=== PATIENT | female | born 1940 | race Caucasian/White ===

== ENCOUNTER 2019-09-02 08:31 | Day surgery (SDC) | payer MEDICARE ==
[2019-09-02] VITALS (13 sets, daily range): BP systolic 126–147; BP diastolic 60–89
[~2019-09-02] VITALS: Ht 162.6 cm; Wt 78.0 kg
[2019-09-02] MEDS ORDERED: albumin 25% 100mL bottle x 1 IV PRN (08:55)
[2019-09-02] MEDS ORDERED: normal saline 1000ml 1,000 ML IV PRN (08:55)
[2019-09-02] MEDS ORDERED: APIX2.5T PO (09:27)
[2019-09-02] MEDS ORDERED: MULT-85 PO (09:27)
[2019-09-02] MEDS ORDERED: CALC-1197 PO (09:27)
[2019-09-02] MEDS ORDERED: DENO60DI SUBCUT (09:27)
[2019-09-02] MEDS ORDERED: ATOR40TA71 PO (09:27)
[2019-09-02] MEDS ORDERED: LANS30CA37 PO (09:27)
[2019-09-02 09:31] LABS: BASOPHILS % (AUTO) 0.6 % (0-1); EOSINOPHILS # (AUTO) 0.1 X10'3 (0-0.9); EOSINOPHILS % (AUTO) 2.4 % (0-6); HEMATOCRIT 40.3 % (35.0-45.0); HEMOGLOBIN 13.7 g/dl (12.0-16.0); LYMPHOCYTES # (AUTO) 2.5 X10'3 (1.1-4.8); LYMPHOCYTES % (AUTO) 46.9 % (21-51); MEAN CORPUSCULAR HEMOGLOBIN 31.5 PG (27.0-31.0); MEAN CORPUSCULAR HGB CONC 33.9 g/dL (33.0-36.5); MEAN CORPUSCULAR VOLUME 92.7 FL (78-98); MEAN PLATELET VOLUME 7.2 FL (7.4-10.4); MONOCYTES # (AUTO) 0.4 X10'3 (0-0.9); NEUTROPHILS # (AUTO) 2.3 X10'3 (1.8-7.7); NEUTROPHILS % (AUTO) 43.1 % (42-75); PLATELET COUNT 232 X10'3 (140-440); RED BLOOD COUNT 4.35 X10'6 (4.20-5.60); RED CELL DISTRIBUTION WIDTH 12.8 % (11.5-14.5); WHITE BLOOD COUNT 5.4 X10'3 (4.5-11.0)
[2019-09-02] MEDS ORDERED: fentaNYL/PF 50MCG/1 ML 2ML syringe ONE (09:50)
[2019-09-02] MEDS ORDERED: midazolam 2 mg/2 ml injection ONE (09:50)
== END 2019-09-02 14:00 | disposition home or self-care (01) ==
LOC: SSTAY O 08:31
PROVIDERS: ATTEND Radiology Diagnostic Radiology
DX: R91.8 Other nonspecific abnormal finding of lung field (principal); C34.2 Malignant neoplasm of middle lobe, bronchus or lung; E78.00 Pure hypercholesterolemia, unspecified; Z98.890 Other specified postprocedural states; Z86.711 Personal history of pulmonary embolism; Z79.01 Long term (current) use of anticoagulants; Z90.710 Acquired absence of both cervix and uterus; Z88.0 Allergy status to penicillin; Z88.5 Allergy status to narcotic agent; Z88.1 Allergy status to other antibiotic agents; Z88.2 Allergy status to sulfonamides; Z91.041 Radiographic dye allergy status
CPT/HCPCS: 32405; 36415; 71045; 77012; 85025; 88341; 88342; J2250; J3010; J7030; 88305; 99152; 99153